=== PATIENT | female | born 1940 | race Hispanic/Latino ===

== ENCOUNTER → 2018-05-15 | Outpatient (CLI) | payer OTHER | END | disposition home or self-care (01) | LOC: SHCH 15:03 | PROVIDERS: ATTEND Internal Medicine Cardiovascular Disease | DX: I25.119 Atherosclerotic heart disease of native coronary artery with unspecified angina pectoris (principal); I10 Essential (primary) hypertension; E78.5 Hyperlipidemia, unspecified | CPT/HCPCS: 93306 ==

== ENCOUNTER → 2019-09-23 | Outpatient (CLI) | payer OTHER | END | disposition home or self-care (01) | LOC: SHCH 11:11 | PROVIDERS: ATTEND Internal Medicine Cardiovascular Disease | DX: I65.22 Occlusion and stenosis of left carotid artery (principal) | CPT/HCPCS: 93880 ==

== ENCOUNTER → 2019-11-25 | Outpatient (CLI) | payer OTHER | END | disposition home or self-care (01) | LOC: RAH 14:20 | PROVIDERS: ATTEND Internal Medicine | DX: R91.8 Other nonspecific abnormal finding of lung field (principal) | CPT/HCPCS: 71046 ==

== ENCOUNTER → 2023-10-02 | Outpatient (CLI) | payer OTHER | END | disposition home or self-care (01) | LOC: RAH 15:50 | DX: M17.11 Unilateral primary osteoarthritis, right knee (principal); M79.89 Other specified soft tissue disorders; M77.31 Calcaneal spur, right foot; M85.871 Other specified disorders of bone density and structure, right ankle and foot; M25.871 Other specified joint disorders, right ankle and foot; M25.561 Pain in right knee; M11.261 Other chondrocalcinosis, right knee; W19.XXXA Unspecified fall, initial encounter; Y93.89 Activity, other specified; Y92.89 Other specified places as the place of occurrence of the external cause; Y99.8 Other external cause status | CPT/HCPCS: 73562; 73610 ==

== ENCOUNTER → 2024-11-15 | Outpatient (CLI) | payer OTHER, MEDICARE ==
--- NOTE | 2024-11-18 10:14 | HMCSR ---
APPROVED REPORT Laterality: Bilateral Indications r09.89 Doppler Spectral Velocity Analysis PSV / EDVPSV / EDV ECA (R) 130 / cm/sECA (L) 137 / cm/s dICA (R) 79 / 19 cm/sdICA (L) 60 / 14 cm/s Luis M (R) 81 / 20 cm/smICA (L) 95 / 24 cm/s pICA (R) 67 / 15 cm/spICA (L) 56 / 20 cm/s dCCA (R) 87 / 14 cm/sdCCA (L) 64 / 17 cm/s mCCA (R) 101 / 19 cm/smCCA (L) 93 / 15 cm/s pCCA (R) 110 / 15 cm/spCCA (L) 98 / 14 cm/s Vert (R) 73 / cm/sVert (L) 47 / cm/s Subl. (R) 132 / cm/sSubl. (L) 177 / cm/s ICA/CCA 0.74ICA/CCA 0.97 Technologist Impression Minimal to mild plaque noted in the bilateral carotids. Right and Left ICA's appear patent, without hemodynamic significance. Bilateral vertebral arteries appear antegrade, although left vertebral artery waveform appears to be collatearl flow.
== END | disposition home or self-care (01) ==
LOC: SHCH 13:18
PROVIDERS: ATTEND Internal Medicine Cardiovascular Disease
DX: I65.23 Occlusion and stenosis of bilateral carotid arteries (principal)
CPT/HCPCS: 93880